=== PATIENT | female | born 1980 | race Caucasian/White ===

== ENCOUNTER 2022-02-02 08:32 | Outpatient (RCR) | payer BC, SELFPAY | END 2022-09-05 13:48 | disposition home or self-care (01) | PROVIDERS: Visit Provider Physician Assistant Medical | DX: H81.10 Benign paroxysmal vertigo, unspecified ear (principal); R26.89 Other abnormalities of gait and mobility; Z51.89 Encounter for other specified aftercare | CPT/HCPCS: 97110; 97162 ==

== ENCOUNTER 2022-10-31 22:15 | Emergency (ER) | payer BC, SELFPAY ==
[2022-10-31 22:18] VITALS: BP 144/100; PULSE 91; RESP 18; TEMP 36.7; O2SAT 95; BMI 32.4
--- NOTE | 2022-10-31 22:21 | ED_ITS ---
HPI - General Adult General Time Seen by Provider: 22:22 Date Seen: 10/31/22 Chief complaint: Dizziness/Vertigo Stated complaint: dizziness, heart palpitations Time Seen by Provider: 10/31/22 22:16 Source: patient, RN notes reviewed and old records reviewed Mode of arrival: ambulatory Limitations: no limitations History of Present Illness HPI narrative: 42-year-old female with history of vertigo who presents today with palpitations. Patient reports intermittent palpitations for the last couple of years although worse in the last 3 weeks. Had a ?strong episode? 4 days ago and then earlier today which prompted her visit. She describes this as a fluttering feeling that last from 1-5 seconds. She gets some shortness of breath and some mild chest pain. She denies associated nausea, vomiting, lightheadedness. She says that there are no specific triggers for these symptoms, not associated with activity, no dyspnea on exertion. Denies increased caffeine use or new medication use. Patient reports history of diabetes, not taking any medications now. Related Data Allergies Allergy/AdvReac Type Severity Reaction Status Date / Time No Known Drug Allergies Allergy Verified 10/31/22 22:21 Review of Systems Status of ROS: Reports: 10 or more systems reviewed and unremarkable except as noted in History and below Exam Narrative: Exam Narrative: General: Well-developed and well-nourished, no acute distress Head: Atraumatic and normocephalic Eyes: Pupils are equal reactive, extraocular motions intact, conjunctiva clear ENT: External nose and ears are normal, posterior pharynx without erythema or exudate Neck: No midline cervical tenderness, full spontaneous range of motion the neck, trachea midline, no adenopathy Heart: Regular rate and rhythm no murmurs or thrills Lungs: Clear to auscultation bilaterally without wheezes or crackles Abdomen: Soft, nontender, nondistended with active bowel sounds Musculoskeletal: No tenderness, deformity, or edema Neurologic: Awake, alert, and oriented x3, no gross focal neurologic deficits, cranial nerves intact as tested Psych: Mood and affect are appropriate Skin: No rashes Const: Vital Signs, click to edit/add: Vital Signs - 24 hr 10/31/22 22:18 Temperature 98.0 F Pulse Rate [Right Pulse Oximeter] 91 Respiratory Rate 18 Blood Pressure [Ri ght Upper Arm] 144/100 H Pulse Oximetry 95 Oxygen Delivery Me thod Room Air Course Course Hospital Course: Patient seen and examined, prior records are reviewed. Patient presents today with intermittent palpitations for the last year so, sinus rhythm on EKG in at the time of my exam. Patient will be monitored in the emergency department for dysrhythmia, labs are ordered to evaluate for possible cause. Given long dura tion of this, single troponin is sufficient. Patient is scheduled for a Zio patch with her primary care provider which is the most appropriate next step. Reevaluation(s) Time of Reevaluation #1: 23:41 Reevaluation #1: Labs independently interpreted by me with normal CBC common reassuring basic panel, negative troponin. Patient in sinus rhythm during duration of her emergency department stay. Given brief nature of her episodes, suspect PVCs, atrial fibrillation or atrial flutter possible but less likely. Patient will have her Zio patch and further treatment based on those results. Vital Signs Vital signs: Initial Vital Signs Temperature 98.0 F 10/31/22 22:18 Temperature Source Temporal Artery Scan 10/31/22 22:18 Pulse Rate 91 10/31/22 22:18 Pulse Rhythm Regular 10/31/22 22:18 Pulse Strength 3+ Normal 10/31/22 22:18 Respiratory Rate 18 10/31/22 22:18 Blood Pressure 144/100 H 10/31/22 22:18 Blood Pressure Mean 114 H 10/31/22 22:18 Blood Pressure Position Sitting 10/31/22 22:18 Pulse Oximetry 95 10/31/22 22:18 Oxygen Delivery Method Room Air 10/31/22 22:18 Vital Signs Temperature 98.0 F 10/31/22 22:18 Pulse Rate 91 10/31/22 22:18 Respiratory Rate 18 10/31/22 22:18 Blood Pressure 144/100 H 10/31/22 22:18 Pulse Oximetry 95 10/31/22 22:18 Oxygen Delivery Method Room Air 10/31/22 22:18 Temperature 98.0 F 10/31/22 22:18 Pulse Rate 91 10/31/22 22:18 Respiratory Rate 18 10/31/22 22:18 Blood Pressure 144/100 H 10/31/22 22:18 Pulse Oximetry 95 10/31/22 22:18 Oxygen Delivery Method Room Air 10/31/22 22:18 Medical Decision Making Medical Records Medical records reviewed: Yes I reviewed the patient's medical records Lab Data Lab results reviewed: Yes I reviewed the patient's lab results Labs: Lab Results 10/31/22 10/31/22 Range/Units 22:39 22:48 WBC 8.02 (4.50-11.00) K/uL RBC 5.06 (4.00-5.20) m/uL Hgb 15.4 (12.0-16.0) gm/dL Hct 43.2 (33.0-51.0) % MCV 85 (80-100) fL MCH 30 (26-34) pg MCHC 36 (32-36) gm/dL RDW Coeff of Dann 11.8 (11.5-15.5) % Plt Count 335 (140-440) K/uL Neut % (Auto) 50.1 (42.0-72.0) % Lymph % (Auto) 39.8 (20-44) % Roane % (Auto) 7.0 (0.0-11.0) % Eos % (Auto) 2.1 (0.0-7.0) % Baso % (Auto) 0.1 (0.0-3.0) % Neut # (Auto) 4.02 (1.7-7.0) K/uL Lymph # (Auto) 3.19 H (0.90-2.90) K/uL Roane # (Auto) 0.60 (0.00-0.90) K/UL Eos # (Auto) 0.17 (0.00-0.50) K/uL Baso # (Auto) 0.01 (0.00-0.30) K/uL Sodium 135 (135-149) mmol/L Potassium 3.4 L (3.6-5.1) mmol/L Chloride 105 (96-114) mmol/L Carbon Dioxide 25 (20-32) mmol/L BUN 9 (5-24) mg/dL Creatinine 0.6 (0.5-1.5) mg/dL Estimated Creat Clear 125.73 Estimated GFR 116 ml/min Glucose 164 H (60-115) mg/dL Calcium 9.2 (8.4-10.6) mg/dL Magnesium 2.2 (1.5-2.6) mg/dL NT-Pro-B Natriuret Pep < 20 pg/mL POC Troponin I 0.00 L (0.01-0.04) ng/ml ECG Data Attestation: I personally reviewed and interpreted this ECG as follows: Prior ECG tracings: not available for review Interpretation: Independently interpreted by me performed at 10:26 p.m. demonstrates sinus rhythm rate 84, no acute ST elevations or depressions, normal intervals, normal axis, QTC 449, SC 172. No prior for comparison. Discharge Plan Discharge Clinical Impression: Heart palpitations Patient Disposition: Home, Self-Care Condition: Stable Instructions: Heart Palpitations (ED), Premature Ventricular Contractions (ED) Activity Level: No Restrictions Discharge Diet: Regular Stand Alone Forms: [employer] Info Instructions
[2022-10-31 23:04] LABS: Basophils Absolute Auto 0.01 K/uL (0.00-0.30); Basophils Percent Auto 0.1 % (0.0-3.0); Eosinophils Absolute Auto 0.17 K/uL (0.00-0.50); Eosinophils Percent Auto 2.1 % (0.0-7.0); Hematocrit 43.2 % (33.0-51.0); Hemoglobin* 15.4 gm/dL (12.0-16.0); Immature Granulocytes Abs Auto 0.07 K/uL (0.00-0.30); Immature Granulocytes Pct Auto 0.9 %; Lymphocytes Absolute Auto 3.19 K/uL (0.90-2.90); Lymphocytes Percent Auto 39.8 % (20-44); Mean Corpuscular HGB Conc 36 gm/dL (32-36); Mean Corpuscular Hemoglobin 30 pg (26-34); Mean Corpuscular Volume 85 fL (80-100); Neutrophils Absolute Auto 4.02 K/uL (1.7-7.0); Neutrophils Percent Auto 50.1 % (42.0-72.0); Platelet Count* 335 K/uL (140-440); RDW Coefficient of Variation % 11.8 % (11.5-15.5); Red Blood Count 5.06 m/uL (4.00-5.20); White Blood Count* 8.02 K/uL (4.50-11.00)
[2022-10-31 23:05] LABS: Slide Review Reflex No
[2022-10-31 23:08] LABS: Chloride* 105 mmol/L (96-114); Sodium* 135 mmol/L (135-149)
[2022-10-31 23:09] LABS: Potassium* 3.4 mmol/L (3.6-5.1)
[2022-10-31 23:11] LABS: Carbon Dioxide* 25 mmol/L (20-32); Creatinine* 0.6 mg/dL (0.5-1.5); Est. Creatinine Clearance* 125.73; Estimated Glomerular Filt Rate 116 ml/min
[2022-10-31 23:12] LABS: Blood Urea Nitrogen* 9 mg/dL (5-24); Calcium* 9.2 mg/dL (8.4-10.6); Glucose* 164 mg/dL (60-115); Magnesium* 2.2 mg/dL (1.5-2.6)
[2022-10-31 23:23] LABS: NT Pro B Type NatriureticPept* < 20 pg/mL
[2022-10-31 23:51] VITALS: PULSE 80; RESP 20
== END 2022-10-31 23:52 | disposition home or self-care (01) ==
PROVIDERS: Emergency Provider Family Medicine; PCP Physician Assistant Medical
DX: R00.2 Palpitations (principal)
CPT/HCPCS: 36415; 80048; 83735; 83880; 84484; 85025; 93005; 99284